=== PATIENT | female | born 1990 | race Caucasian/White ===

== ENCOUNTER 2016-11-07 23:59 | Emergency (ER) | payer OTHER ==
[2016-11-08 00:05] VITALS: BP 131/89; PULSE 90; RESP 14; TEMP 98.2; O2SAT 99
--- NOTE | 2016-11-08 00:43 | EDPHY ---
H & P Stated Complaint: left knee inj - heard pop, pain to outer knee x30 minutes HPI/ROS: HPI CHIEF COMPLAINT: Left knee pain HISTORY OF PRESENT ILLNESS: This patient 26-year-old female, she presents emergency room with left knee pain. She was playing soccer. She states she came down on her knee and a weird angle and heard a pop. She now has left lateral knee pain and right medial knee pain. Unable to bear weight. Denies numbness or tingling or significant swelling. Past Medical History: No medical history Past Surgical History: No surgical history Social History: Denies daily use drugs alcohol tobacco products. Family History: Noncontributory ROS REVIEW OF SYSTEMS: A comprehensive 10 point review of systems is otherwise negative aside from elements mentioned in the history of present illness. Exam Constitutional triage nursing summary reviewed, vital signs reviewed, awake/ alert. Eyes normal conjunctivae and sclera, EOMI, PERRLA. HENT normal inspection, atraumatic, moist mucus membranes, no epistaxis, neck supple/ no meningismus, no raccoon eyes. Respiratory clear to auscultation bilaterally, normal breath sounds, no respiratory distress, no wheezing. Cardiovascular rate normal, regular rhythm, no murmur, no edema, distal pulses normal. Gastrointestinal soft, non-tender, no rebound, no guarding, normal bowel sounds, no distension, no pulsatile mass. Genitourinary no CVA tenderness. Musculoskeletal left knee: No signs of joint effusion. She is mildly tender left lateral joint line, as well as tender medial joint line, full range of motion, no clicking, pain with range of motion. no midline vertebral tenderness , full range of motion, no calf swelling, no tenderness of extremities, no meningismus, good pulses, neurovascularly intact. Skin pink, warm, & dry, no rash, skin atraumatic. Neurologic awake, alert and oriented x 3, AAOx3, moves all 4 extremities equally, motor intact, sensory intact, CN II-XII intact, normal cerebellar, normal vision, normal speech. Psychiatric normal mood/affect. Heme/Lymph/Immune no lymphadenopathy. Differential Diagnosis: Includes but is not limited to in a particular knee sprain, knee contusion, tibial plateau fracture, lateral collateral ligament sprain or tear, medial collateral ligament sprain, ACL tear, PCL tear Medical Decision Making: Plan for this patient crutches, ice pack, ibuprofen, knee x-ray. Knee immobilizer. Re-evaluation: ED x-ray left knee: Negative for acute fracture visualized. No significant effusion. Image interpreted by myself. Source: Patient - Personal History LMP (Females 10-55): 1-7 Days Ago Current Tetanus/Diphtheria Vaccine: Yes Current Tetanus Diphtheria and Acellular Pertussis (TDAP): Yes - Medical/Surgical History Hx Asthma: No Hx Chronic Respiratory Disease: No Hx Diabetes: No Hx Cardiac Disease: No Hx Renal Disease: No Hx Cirrhosis: No Hx Alcoholism: No Hx HIV/AIDS: No Hx Splenectomy or Spleen Trauma: No Other PMH: denies - Social History Smoking Status: Never smoked Constitutional: Initial Vital Signs Temperature (C) 36.8 C 11/08/16 00:02 Heart Rate 90 11/08/16 00:02 Respiratory Rate 14 11/08/16 00:02 Blood Pressure 131/89 H 11/08/16 00:02 O2 Sat (%) 99 11/08/16 00:02 O2 Delivery Mode Room Air Allergies/Adverse Reactions: No Known Allergies Allergy (Unverified 11/08/16 00:05) Home Medications: Medication Instructions Recorded Ibuprofen [Motrin (*)] 800 mg PO Q6-8PRN #10 tab 11/08/16 Departure - Departure Disposition: Home, Routine, Self-Care Clinical Impression: Knee sprain Qualifiers: Encounter type: initial encounter Involved ligament of knee: lateral collateral ligament Laterality: left Qualified Code(s): S83.422A - Sprain of lateral collateral ligament of left knee, initial encounter Knee contusion Qualifiers: Encounter type: initial encounter Laterality: left Qualified Code(s): S80.02XA - Contusion of left knee, initial encounter Condition: Good Instructions: Knee Pain (ED), Knee Sprain (ED) Additional Instructions: 1. Ice your knee. 2. Knee immobilizer for support. 3. Crutches for support. 4. Take anti-inflammatory pain medicine. 5. Please follow up with Orthopedics. Referrals: Kelsey Ramirez MD [Primary Care Provider] - As per Instructions Juanjo Ng MD [Medical Doctor] - As per Instructions Prescriptions: Ibuprofen [Motrin (*)] 800 mg PO Q6-8PRN #10 tab
== END 2016-11-08 00:58 | disposition home or self-care (01) ==
DX: S83.422A Sprain of lateral collateral ligament of left knee, initial encounter (principal); S80.02XA Contusion of left knee, initial encounter; X58.XXXA Exposure to other specified factors, initial encounter; Y99.8 Other external cause status; Y93.66 Activity, soccer